=== PATIENT | female | born 1990 | race African-American/Black ===

== ENCOUNTER 2017-08-16 13:22 | Emergency (ER) | payer SELFPAY ==
[~2017-08-16] VITALS: Ht 160 cm; Wt 90.7 kg
[2017-08-16 13:33] VITALS: BP 144/74
[2017-08-16] MEDS ORDERED: methylPREDNISolone SOD SUCC PF 125 MG/2 ML VIAL. IM ONE (13:45)
[2017-08-16] MEDS ORDERED: IPRATRPIUM/ALBUTEROL 0.5/2.5MG 3 ML NEBU. NEB ONE (13:45)
--- NOTE | 2017-08-16 13:53 | PHYS DOC ---
Past Medical History Past Medical History: Asthma Past Surgical History: No Surgical History Alcohol Use: None Drug Use: None Adult General Chief Complaint Chief Complaint: ASTHMA HPI HPI Patient is a 27 year old female presents the ED complaining of cough 1 week. Patient states she has a history of asthma. Associated symptoms include sore throat and rhinorrhea. Sick contacts at home. Patient states she has a rescue inhaler but no nebulizer at home. Denies chest pain, dizziness, weakness, syncope, fever, nausea/vomiting or abdominal pain. Review of Systems Review of Systems Constitutional: Denies fever or chills [] Eyes: Denies change in visual acuity, redness, or eye pain [] HENT: Complains of sore throat and rhinorrhea.[] Respiratory: Complains of cough. Denies shortness of breath [] Cardiovascular: No additional information not addressed in HPI [] GI: Denies abdominal pain, nausea, vomiting, bloody stools or diarrhea [] : Denies dysuria or hematuria [] Musculoskeletal: Denies back pain or joint pain [] Integument: Denies rash or skin lesions [] Neurologic: Denies headache, focal weakness or sensory changes [] Endocrine: Denies polyuria or polydipsia [] All other systems were reviewed and found to be within normal limits, except as documented in this note. Current Medications Current Medications Current Medications Medications (Trade) Dose Ordered Sig/Tatum Start Time Stop Time Status Last Admin Dose Admin Albuterol/ Ipratropium (Duoneb) 3 ml 1X ONCE 08/16/17 13:45 08/16/17 13:46 DC 08/16/17 13:58 3 ML Methylprednisolone Sodium Succinate (SOLU-Medrol 125MG VIAL) 125 mg 1X ONCE 08/16/17 13:45 08/16/17 13:46 DC 08/16/17 13:53 125 MG Allergies Allergies Allergies Coded Allergies Type Severity Reaction Last Updated Verified No Known Drug Allergies 08/16/17 No Physical Exam Physical Exam Constitutional: Well developed, well nourished, no acute distress, non-toxic appearance. [] HENT: Normocephalic, atraumatic, bilateral external ears normal, oropharynx moist, no oral exudates, nose normal. [] Eyes: PERRLA, EOMI, conjunctiva normal, no discharge. [] Neck: Normal range of motion, no tenderness, supple, no stridor. [] Cardiovascular:Heart rate regular rhythm, no murmur [] Lungs & Thorax: Bilateral breath sounds. MILD WHEEZING BILATERALLY. [] Abdomen: Bowel sounds normal, soft, no tenderness, no masses, no pulsatile masses. [] Skin: Warm, dry, no erythema, no rash. [] Back: No tenderness, no CVA tenderness. [] Extremities: No tenderness, no cyanosis, no clubbing, ROM intact, no edema. [] Neurologic: Alert and oriented X 3, normal motor function, normal sensory function, no focal deficits noted. [] Psychologic: Affect normal, judgement normal, mood normal. [] Current Patient Data Vital Signs Vital Signs Date Time Temp Pulse Resp B/P (MAP) Pulse Ox O2 Delivery O2 Flow Rate FiO2 08/16/17 14:01 93 Room Air 08/16/17 13:33 97.9 97 24 97.9 Lab Values Laboratory Tests Test 08/16/17 13:46 POC Urine HCG, Qualitative Hcg negative (Negative) EKG EKG [] Radiology/Procedures Radiology/Procedures PROCEDURE: CHEST PA & LATERAL Two view chest History:Pneumonia PA and lateral views of the chest are submitted. Comparison: 07/17/2007 Findings: There is no dependent pleural fluid or pneumothorax. No lobar infiltrate is identified by radiograph. Heart size is stable, within normal limits. Impression: 1. No lobar infiltrate is identified by radiograph.[] Course & Med Decision Making Course & Med Decision Making Pertinent Labs and Imaging studies reviewed. (See chart for details) []Patient improved after breathing treatment. Will treat with outpatient azithromycin, prednisone and Pro Air inhaler. O2 Sat improved to 97%. Discussed reasons to return to the ED. Discussed follow-up with PCP in one to 2 days. Provided contact information/education. Patient understands and agrees with plan. Dragon Disclaimer Dragon Disclaimer This electronic medical record was generated, in whole or in part, using a voice recognition dictation system. Departure Departure Impression: Primary Impression: Acute bronchitis Disposition: HOME, SELF-CARE Condition: IMPROVED Referrals: NO PCP (PCP) Patient Instructions: Acute Bronchitis Scripts Azithromycin (AZITHROMYCIN TABLET) 250 Mg Tablet 1 PKG PO UD, #6 TAB Prov: SUNDAY SALEH 08/16/17 Albuterol Sulfate (PROAIR HFA INHALER) 8.5 Gm Hfa.aer.ad 1 PUFF INH PRN Q6HRS Y for SHORTNESS OF BREATH, #1 INHALER 0 Refills Prov: SUNDAY SALEH 08/16/17 Prednisone (PREDNISONE) 20 Mg Tablet 2 TAB PO DAILY, #10 TAB Prov: SUNDAY SALEH 08/16/17 SALEH Aug 16, 2017 13:53
--- NOTE | 2017-08-16 14:29 | RAD ---
Two view chest History:Pneumonia PA and lateral views of the chest are submitted. Comparison: 07/17/2007 Findings: There is no dependent pleural fluid or pneumothorax. No lobar infiltrate is identified by radiograph. Heart size is stable, within normal limits. Impression: 1. No lobar infiltrate is identified by radiograph.
[2017-08-16] MEDS ORDERED: AZIT250T6 PO (14:45)
[2017-08-16] MEDS ORDERED: PROAIR HFA8.5 GM INH (14:45)
[2017-08-16] MEDS ORDERED: PRED20TA PO (14:45)
== END 2017-08-16 14:58 | disposition home or self-care (01) ==
LOC: ER 13:22
DX: J20.9 Acute bronchitis, unspecified (principal); J45.909 Unspecified asthma, uncomplicated
CPT/HCPCS: 71020; 81025; 94250; 94640; 94760; 96372; 99284; J2930; J7620

== ENCOUNTER 2017-11-28 09:00 | Emergency (ER) | payer OTHER ==
[2017-11-28] MEDS: IPRATRPIUM/ALBUTEROL 0.5/2.5MG 3 ML NEBU. NEB (09:21)
== END 2017-11-28 09:43 | disposition home or self-care (01) ==
LOC: ER 09:00
DX: J45.21 Mild intermittent asthma with (acute) exacerbation (principal)
CPT/HCPCS: 94640; 99283; J7620

== ENCOUNTER 2017-12-09 11:22 | Emergency (ER) | payer OTHER ==
[2017-12-09] MEDS: HYDROcodone/APAP 5/325MG 1 TAB TABLET PO (13:17)
== END 2017-12-09 13:15 | disposition home or self-care (01) ==
LOC: ER 11:22
DX: S93.402A Sprain of unspecified ligament of left ankle, initial encounter (principal); S60.022A Contusion of left index finger without damage to nail, initial encounter; J45.909 Unspecified asthma, uncomplicated; Y04.0XXA Assault by unarmed brawl or fight, initial encounter; Y93.89 Activity, other specified; Y99.8 Other external cause status; Y92.89 Other specified places as the place of occurrence of the external cause
CPT/HCPCS: 29130; 73140; 73610; 99284-25

== ENCOUNTER 2018-03-10 13:25 | Emergency (ER) | payer OTHER ==
[2018-03-10 13:38] LABS: URINE HCG POC HCG POSITIVE (Negative)
[2018-03-10 13:42] LABS: BILIRUBIN,URINE NEGATIVE (NEG); CLARITY,URINE CLEAR; COLOR,URINE YELLOW; GLUCOSE,URINE NEGATIVE (NEG); NITRITE,URINE NEGATIVE (NEG); PH,URINE 6.5; PROTEIN,URINE NEGATIVE (NEG-TRACE)
[2018-03-10 13:52] LABS: BACTERIA,URINE FEW /HPF (0-FEW); RBC,URINE OCC /HPF (0-2); SQUAMOUS EPITHELIAL CELL,UR MANY /LPF; WBC,URINE RARE /HPF (0-4)
[2018-03-10 13:58] LABS: ADD MAN DIFF? NO
[2018-03-10 14:02] LABS: BASO # 0.1 x10^3/uL (0.0-0.2); BASO % 1 % (0-3); EOS # 0.6 x10^3/uL (0.0-0.7); EOS % 6 % (0-3); HEMATOCRIT 37.1 % (36.0-47.0); HEMOGLOBIN 12.3 g/dL (12.0-15.5); LYMPH # 2.8 x10^3/uL (1.0-4.8); LYMPH % 26 % (24-48); MEAN CORPUSCULAR HEMOGLOBIN 26 pg (25-35); MEAN CORPUSCULAR HGB CONC 33 g/dL (31-37); MEAN CORPUSCULAR VOLUME 77 fL (79-100); MONO # 0.6 x10^3/uL (0.0-1.1); MONO % 6 % (0-9); NEUT # 6.7 x10^3uL (1.8-7.7); NEUT % 62 % (31-73); PLATELET COUNT 307 x10^3/uL (140-400); RED BLOOD COUNT 4.83 x10^6/uL (3.50-5.40); RED CELL DISTRIBUTION WIDTH 15.3 % (11.5-14.5); WHITE BLOOD COUNT 10.7 x10^3/uL (4.0-11.0)
[2018-03-10 14:10] LABS: ANION GAP 10 (6-14); BLOOD UREA NITROGEN 14 mg/dL (7-20); BUN/CREATININE RATIO 23 (6-20); CALCIUM 9.1 mg/dL (8.5-10.1); CARBON DIOXIDE 26 mmol/L (21-32); CHLORIDE 102 mmol/L (98-107); CREATININE 0.6 mg/dL (0.6-1.0); GFR 145.1; GLUCOSE 98 mg/dL (70-99); POTASSIUM 3.8 mmol/L (3.5-5.1); SODIUM 138 mmol/L (136-145)
[2018-03-10 14:16] LABS: ALBUMIN 3.2 g/dL (3.4-5.0); ALBUMIN/GLOBULIN RATIO 0.9 (1.0-1.7); ALK PHOS 58 U/L (46-116); ALT (SGPT) 39 U/L (14-59); AST (SGOT) 19 U/L (15-37); TOTAL BILIRUBIN 0.4 mg/dL (0.2-1.0); TOTAL PROTEIN 6.9 g/dL (6.4-8.2)
[2018-03-10 14:43] LABS: PARTIAL THROMBOPLASTIN TIME 32 SEC (24-38)
[2018-03-12 14:31] LABS: CHLAMYDIA PROBE Negative (Negative); GC PROBE Negative (Negative)
== END 2018-03-10 16:06 | disposition home or self-care (01) ==
LOC: ER 16:06
DX: O46.91 Antepartum hemorrhage, unspecified, first trimester (principal); O23.591 Infection of other part of genital tract in pregnancy, first trimester; N76.0 Acute vaginitis; B96.89 Other specified bacterial agents as the cause of diseases classified elsewhere; O99.511 Diseases of the respiratory system complicating pregnancy, first trimester; J45.909 Unspecified asthma, uncomplicated
CPT/HCPCS: 36415; 76801; 76817; 80053; 81001; 81025; 84702; 85025; 85610; 85730; 86900; 86901; 87491; 87591; 99285-25; Q0111

== ENCOUNTER 2018-03-30 17:20 | Emergency (ER) | payer OTHER ==
[2018-03-30 17:47] LABS: BILIRUBIN,URINE MODERATE (NEG); CLARITY,URINE CLEAR; COLOR,URINE ORANGE; GLUCOSE,URINE NEGATIVE (NEG); NITRITE,URINE NEGATIVE (NEG); PROTEIN,URINE 30 mg/dL (NEG-TRACE)
[2018-03-30 17:52] LABS: BACTERIA,URINE FEW /HPF (0-FEW); RBC,URINE 0 /HPF (0-2); SQUAMOUS EPITHELIAL CELL,UR MOD /LPF
[2018-03-30 18:02] LABS: NEG OBC UR NEG; POS OBC UR POS; U PREG PATIENT POSITIVE (NEG)
[2018-03-30] MEDS: ONDANSETRON PF 4 MG/2 ML VIAL. IV (18:07)
[2018-03-30] MEDS: IV NORMAL SALINE 1000ML BAG 1,000 ML IV ×2 (18:08→19:00)
[2018-03-30 18:17] LABS: ADD MAN DIFF? NO
[2018-03-30 18:19] LABS: BASO # 0.1 x10^3/uL (0.0-0.2); BASO % 1 % (0-3); EOS # 0.4 x10^3/uL (0.0-0.7); EOS % 4 % (0-3); HEMATOCRIT 39.1 % (36.0-47.0); LYMPH # 2.2 x10^3/uL (1.0-4.8); LYMPH % 20 % (24-48); MEAN CORPUSCULAR HEMOGLOBIN 25 pg (25-35); MEAN CORPUSCULAR HGB CONC 33 g/dL (31-37); MEAN CORPUSCULAR VOLUME 76 fL (79-100); MONO # 0.7 x10^3/uL (0.0-1.1); MONO % 7 % (0-9); NEUT # 7.7 x10^3uL (1.8-7.7); NEUT % 69 % (31-73); PLATELET COUNT 322 x10^3/uL (140-400); RED BLOOD COUNT 5.13 x10^6/uL (3.50-5.40); RED CELL DISTRIBUTION WIDTH 14.8 % (11.5-14.5); WHITE BLOOD COUNT 11.2 x10^3/uL (4.0-11.0)
[2018-03-30 18:33] LABS: ANION GAP 9 (6-14); BLOOD UREA NITROGEN 9 mg/dL (7-20); CALCIUM 8.9 mg/dL (8.5-10.1); CARBON DIOXIDE 25 mmol/L (21-32); CHLORIDE 100 mmol/L (98-107); CREATININE 0.7 mg/dL (0.6-1.0); GFR 121.5; GLUCOSE 92 mg/dL (70-99); POTASSIUM 3.4 mmol/L (3.5-5.1); SODIUM 134 mmol/L (136-145)
== END 2018-03-30 20:20 | disposition home or self-care (01) ==
LOC: ER 20:20
DX: O21.9 Vomiting of pregnancy, unspecified (principal); O26.891 Other specified pregnancy related conditions, first trimester; O99.511 Diseases of the respiratory system complicating pregnancy, first trimester; Z3A.08 8 weeks gestation of pregnancy
CPT/HCPCS: 36415; 80048; 81001; 81025; 84702; 85025; 87086; 96361; 96374; 99285; J2405; J7030

== ENCOUNTER 2019-08-07 16:44 | Emergency (ER) | payer MEDICAID, OTHER ==
[~2019-08-07] VITALS: Ht 160 cm; Wt 103.0 kg
[~2019-08-07 16:44] MED LIST: ALBU0.63 NEB; ALBU2.5V8 INH; AZIT250T6 PO; METR500T PO; ONDA4TAB10 SL; PRED20TA PO; TRAM50TA PO
[2019-08-07 17:00] VITALS: BP 118/77
--- NOTE | 2019-08-07 18:01 | PHYS DOC ---
Past Medical History Past Medical History: Asthma Past Surgical History: No Surgical History Alcohol Use: None Drug Use: None Adult General Chief Complaint Chief Complaint: EARACHE/EAR PAIN HPI HPI Patient is a 28 year old AA female who presents to the emergency department with complaints of right ear pain, decreased hearing, dry cough, and nasal congestion for the last 2 days. She denies any injury to her ear, drainage from the ear, or bleeding. She denies any fever, wheezing, shortness of breath, abdominal pain, sore throat, nausea, vomiting, diarrhea, or rash. Patient currently rates her pain a 10 out of 10 on the pain scale, she denies any alleviating or exacerbating factors. All other ROS is neg unless otherwise noted in HPI. Review of Systems Review of Systems See Above Allergies Allergies Allergies Coded Allergies Type Severity Reaction Last Updated Verified No Known Drug Allergies 08/16/17 No Physical Exam Physical Exam See Above Constitutional: Well developed, well nourished, no acute distress, non-toxic appearance. [] HENT: Normocephalic, atraumatic, bilateral external ears normal, right TM erythemic and bulging no perforation, left TM normal, oropharynx moist, no oral exudates, nose congested Eyes: PERRLA, EOMI, conjunctiva normal, no discharge. [] Neck: Normal range of motion, no tenderness, supple, no stridor. [] Cardiovascular:Heart rate regular rhythm, no murmur [] Lungs & Thorax: Bilateral breath sounds clear to auscultation [] Skin: Warm, dry, no erythema, no rash. [] Back: No tenderness Extremities: No cyanosis, no clubbing, ROM intact, no edema. [] Neurologic: Alert and oriented X 3, no focal deficits noted. [] Psychologic: Affect normal, judgement normal, mood normal. [] EKG EKG [] Radiology/Procedures Radiology/Procedures [] Course & Med Decision Making Course & Med Decision Making Pertinent Labs and Imaging studies reviewed. (See chart for details) [] Dragon Disclaimer Dragon Disclaimer This electronic medical record was generated, in whole or in part, using a voice recognition dictation system. Departure Departure Impression: Primary Impression: Suppurative otitis media of right ear without rupture of ear drum Additional Impression: URI (upper respiratory infection) Disposition: 01 HOME, SELF-CARE Condition: STABLE Referrals: UNKNOWN PCP NAME (PCP) Patient Instructions: Otitis Media, Adult, [id number], Upper Respiratory Infection, Adult, [id number] Additional Instructions: Fill prescription(s) and use as directed. Recommend use of a Cool mist humidifier in room at bedtime. Alternate Tylenol or ibuprofen as needed for pain/fever. Increase clear fluids. Avoid airway triggers such as smoke, fragrance, dust, and pollen. May take [id number] cough suppressants as needed. Follow-up with your primary care doctor in 1-2 days, return to the ER if symptoms worsen. Scripts Amoxicillin (AMOXICILLIN) 875 Mg Tablet 1 TAB PO BID, #20 TAB 0 Refills Prov: MARTINA DAWN [employer]YWOOD STOCK GRADER 08/07/19 Problem Qualifiers Additional Impression: URI (upper respiratory infection) URI type: unspecified URI Qualified Codes: J06.9 - Acute upper respiratory infection, unspecified MARTINA DAWN [employer] GRADER Aug 07, 2019 18:01
[2019-08-07] MEDS ORDERED: AMOX875T PO (18:12)
== END 2019-08-07 18:22 | disposition home or self-care (01) ==
LOC: ER 16:44
DX: H66.41 Suppurative otitis media, unspecified, right ear (principal); J06.9 Acute upper respiratory infection, unspecified; J45.909 Unspecified asthma, uncomplicated
CPT/HCPCS: 99283

== ENCOUNTER 2019-09-27 14:22 | Emergency (ER) | payer MEDICAID ==
[~2019-09-27] VITALS: Ht 160 cm; Wt 98.4 kg
[~2019-09-27 14:22] MED LIST changes: +AMOX875T PO
--- NOTE | 2019-09-27 15:14 | PHYS DOC ---
Past Medical History Past Medical History: Asthma (MAREK HUA APRN) Past Surgical History: No Surgical History (MAREK HUA APRN) Alcohol Use: None Drug Use: None (MAREK HUA APRN) Adult General Chief Complaint Chief Complaint: SEXUALLY TRANSMITTED DISEASE HPI HPI Patient is a 29 year old female who presents with dysuria, vaginal odor this been ongoing for 2 days. The patient states her only history is asthma. The patient wants to be checked for STDs. (MAREK HUA APRN) Review of Systems Review of Systems Constitutional: Denies fever or chills [] Eyes: Denies change in visual acuity, redness, or eye pain [] HENT: Denies nasal congestion or sore throat [] Respiratory: Denies cough or shortness of breath [] Cardiovascular: No additional information not addressed in HPI [] GI: Denies abdominal pain, nausea, vomiting, bloody stools or diarrhea [] : Reports dysuria, and odor. Denies discharge. Musculoskeletal: Denies back pain or joint pain [] Integument: Denies rash or skin lesions [] Neurologic: Denies headache, focal weakness or sensory changes [] Endocrine: Denies polyuria or polydipsia [] Complete systems were reviewed and found to be within normal limits, except as documented in this note. (MAREK HUA APRN) Current Medications Current Medications Current Medications Medications (Trade) Dose Ordered Sig/Tatum Start Time Stop Time Status Last Admin Dose Admin Azithromycin (Zithromax) 1,000 mg 1X ONCE 09/27/19 16:00 09/27/19 16:01 DC 09/27/19 15:37 1,000 MG Ceftriaxone Sodium (Rocephin Im) 250 mg 1X ONCE 09/27/19 16:00 09/27/19 16:01 DC 09/27/19 15:36 250 MG (MAREK GREWAL DO) Allergies Allergies Allergies Coded Allergies Type Severity Reaction Last Updated Verified tramadol Allergy Severe soa 08/07/19 Yes (MAREK GREWAL DO) Physical Exam Physical Exam Constitutional: Well developed, well nourished, no acute distress, non-toxic appearance. [] HENT: Normocephalic, atraumatic, bilateral external ears normal, oropharynx moist, no oral exudates, nose normal. [] Eyes: PERRLA, EOMI, conjunctiva normal, no discharge. [] Neck: Normal range of motion, no tenderness, supple, no stridor. [] Cardiovascular:Heart rate regular rhythm, no murmur [] Lungs & Thorax: Bilateral breath sounds clear to auscultation [] Abdomen: Bowel sounds normal, soft, no tenderness, no masses, no pulsatile mas ses. [] Skin: Warm, dry, no erythema, no rash. [] Back: No tenderness, no CVA tenderness. [] Extremities: No tenderness, no cyanosis, no clubbing, ROM intact, no edema. [] Neurologic: Alert and oriented X 3, normal motor function, normal sensory function, no focal deficits noted. [] Psychologic: Affect normal, judgement normal, mood normal. [] Pelvic Exam: External exam is normal and without rash, No CMT, OS is closed, white discharge, uterus NTTP, No adnexal masses or tenderness noted (MAREK HUA APRN) Current Patient Data Vital Signs Vital Signs Date Time Temp Pulse Resp B/P (MAP) Pulse Ox O2 Delivery O2 Flow Rate FiO2 09/27/19 16:35 78 17 109/75 (86) 98 Room Air 09/27/19 14:50 98.7 98.7 (GREWALMAREK CANTOR DO) Lab Values Laboratory Tests Test 09/27/19 14:48 09/27/19 14:55 09/27/19 15:28 Urine Collection Type Unknown Urine Color Yellow Urine Clarity Clear Urine pH 6.5 Urine Specific [place] >=1.030 Urine Protein Negative mg/dL (NEG-TRACE) Urine Glucose (UA) Negative mg/dL (NEG) Urine Ketones (Stick) Negative mg/dL (NEG) Urine Blood Negative (NEG) Urine Nitrite Negative (NEG) Urine Bilirubin Negative (NEG) Urine Urobilinogen Dipstick 1.0 mg/dL (0.2 mg/dL) Urine Leukocyte Esterase Small (NEG) Urine RBC 0 /HPF (0-2) Urine WBC 20-40 /HPF (0-4) Urine Squamous Epithelial Cells Mod /LPF Urine Bacteria 0 /HPF (0-FEW) Urine Mucus Mod /LPF Urine Trichomonas Present POC Urine HCG, Qualitative Borderline hcg level Chlamydia DNA Probe Negative (Negative) Neisseria gonorrhoeae DNA Probe Negative (Negative) Microbiology 09/27/19 Urine Culture - Final, Complete 09/27/19 Urine Culture Result 1 (SHAILESH) - Final, Complete 09/27/19 Wet Prep - Final, Complete (MAREK GREWAL DO) EKG EKG [] (MAREK HUA APRN) Radiology/Procedures Radiology/Procedures [] (MAREK HUA APRN) Course & Med Decision Making Course & Med Decision Making Pertinent Labs and Imaging studies reviewed. (See chart for details) Will get STD testing, UA, and Urine . Patient has borderline test. Asked patient to follow up with OB. Will treat with Rocephin and Azithromycin. Wet Prep shows bacterial vaginosis, and Trichomoniasis. Will treat with Flagyl. (MAREK HUA APRN) Dragon Disclaimer Dragon Disclaimer This electronic medical record was generated, in whole or in part, using a voice recognition dictation system. (MAREK HUA APRN) Departure Departure Impression: Primary Impression: Trichomoniasis of vagina Additional Impressions: Bacterial vaginosis Urinary tract infection Concern about STD in female without diagnosis Disposition: 01 HOME, SELF-CARE Condition: STABLE Referrals: UNKNOWN PCP NAME (PCP) Patient Instructions: Bacterial Vaginosis, Sexually Transmitted Disease, Trichomoniasis, Urinary Tract Infection Additional Instructions: Thank you for visiting [facility]. We appreciate you trusting us with your care. If any additional problems come up don't hesitate to return to visit us. Please follow up with your primary care provider so they can plan additional care if needed and know about the problem that you had. If symptoms worsen come back to the Emergency Department. Any concerning symptoms that start such as chest pain, shortness of air, weakness or numbness on one side of the body, running high fevers or any other concerning symptoms return to the ER. You have been prescribed an antibiotic today to help fight your infection. Plea se take all of the antibiotic as directed. If after 48 hours the infection is not improving, please return for more care. If the infection worsens, return to ER for additional care. Do not drink alcohol with Flagyl. Please follow-up with [employer]ERSON. If you have further positive testing it may take 48-72 hours and you will get a call if positive. If anything is positive please notify your partner. Scripts Cephalexin (KEFLEX) 500 Mg Capsule 1 CAP PO BID for 7 Days, #14 CAP 0 Refills Prov: MAREK HUA APRN 09/27/19 Metronidazole (FLAGYL) 500 Mg Tablet 1 TAB PO BID for 7 Days, #14 TAB Prov: MAREK HUA APRN 09/27/19 Attending Signature Attending Signature I have reviewed the PA/EMERGENCY VETERINARY TECHNICIAN's note and plan of care. I was available for consultation as needed during the patient's visit in the emergency department. I agree with the clinical impression, plan, and disposition. (MAREK GREWAL DO) Problem Qualifiers Additional Impressions: Urinary tract infection Urinary tract infection type: acute cystitis Hematuria presence: without hematuria Qualified Codes: N30.00 - Acute cystitis without hematuria MAREK HUA APRN Sep 27, 2019 15:14 MAREK GREWAL DO Oct 01, 2019 19:03
[2019-09-27 15:22] LABS: BILIRUBIN,URINE NEGATIVE (NEG); CLARITY,URINE CLEAR; COLOR,URINE YELLOW; NITRITE,URINE NEGATIVE (NEG); PH,URINE 6.5; PROTEIN,URINE NEGATIVE (NEG-TRACE)
[2019-09-27 15:34] LABS: SQUAMOUS EPITHELIAL CELL,UR MOD /LPF
[2019-09-27 15:35] LABS: BACTERIA,URINE 0 /HPF (0-FEW); RBC,URINE 0 /HPF (0-2); TRICHOMONAS,URINE PRESENT; WBC,URINE 20-40 /HPF (0-4)
[2019-09-27] MEDS: cefTRIAXone IM 250 MG VIAL IM ONE (15:36)
[2019-09-27] MEDS: AZITHROMYCIN 250 MG TABLET. PO ONE (15:37)
[2019-09-27] MEDS ORDERED: METR500T PO (16:31)
[2019-09-27] MEDS ORDERED: CEPH-264 PO (16:31)
[2019-09-27 16:35] VITALS: BP 109/75
[2019-09-29 21:07] LABS: GC PROBE Negative (Negative)
== END 2019-09-27 16:37 | disposition home or self-care (01) ==
LOC: ER 14:22
DX: N30.00 Acute cystitis without hematuria (principal); N76.0 Acute vaginitis; B96.89 Other specified bacterial agents as the cause of diseases classified elsewhere; A59.01 Trichomonal vulvovaginitis; J45.909 Unspecified asthma, uncomplicated
CPT/HCPCS: 81001; 81025; 87086; 87491; 87591; 96372; 99284; J0696; Q0111; Q0144

== ENCOUNTER 2020-03-27 23:47 | Emergency (ER) | payer MEDICAID ==
[~2020-03-27] VITALS: Ht 160 cm; Wt 106.0 kg
[~2020-03-27 23:47] MED LIST changes: +CEPH-264 PO
--- NOTE | 2020-03-28 00:30 | PHYS DOC ---
Past Medical History Past Medical History: Asthma Past Surgical History: No Surgical History Smoking Status: Never Smoker Alcohol Use: None Drug Use: None General Adult EDM: Chief Complaint: HAND PROBLEM HPI: HPI: Patient is a 29 year old female presents to the ED with a chief complaint of swelling and redness to the left hand. Patient states that especially the third and fourth finger of left hand have tenderness in them. Patient states that she thinks he may have been bit by a spider. Patient states that yesterday there was a blister which spontaneously drained but today there is more redness in that area. Patient denies fever, chills, nausea, vomiting, shortness of breath. Review of Systems: Review of Systems: Constitutional: Denies fever or chills. [] Eyes: Denies change in visual acuity. [] HENT: Denies nasal congestion or sore throat. [] Respiratory: Denies cough or shortness of breath. [] Cardiovascular: Denies chest pain or edema. [] : Denies dysuria. [] Musculoskeletal: Complains of redness and tenderness to the left third and fourth finger Heart Score: Risk Factors: Risk Factors: DM, Current or recent (<one month) smoker, HTN, HLP, family history of CAD, obesity. Risk Scores: Score 0 - 3: 2.5% MACE over next 6 weeks - Discharge Home Score 4 - 6: 20.3% MACE over next 6 weeks - Admit for Clinical Observation Score 7 - 10: 72.7% MACE over next 6 weeks - Early Invasive Strategies Allergies: Allergies: Allergies Coded Allergies Type Severity Reaction Last Updated Verified tramadol Allergy Severe soa 08/07/19 Yes Physical Exam: PE: Constitutional: Well developed, well nourished, no acute distress, non-toxic appearance. [] HENT: Normocephalic, atraumatic Eyes: EOMI Neck: Normal range of motion, Supple Respiratory: No respiratory distress Extremities: Erythema, tenderness to the third and fourth fingers of the left hand. Neurologic: Alert and oriented X 3 Current Patient Data: Vital Signs: Vital Signs Date Time Temp Pulse Resp B/P (MAP) Pulse Ox O2 Delivery O2 Flow Rate FiO2 03/27/20 23:50 98.4 77 16 135/90 (105) 96 Room Air 98.4 EKG: EKG: [] Radiology/Procedures: Radiology/Procedures: [] Course & Med Decision Making: Course & Med Decision Making Patient will be treated with oral antibiotics and pain medication. Discussed plan of care with patient. Patient is instructed to follow up with PCP in one to 2 days. Appropriate discharge instructions given to patient to return to the ED or to seek immediate medical evaluation. Patient is instructed to return to the ED if symptoms worsen or if any concerns. Dragon Disclaimer: Dragon Disclaimer: This electronic medical record was generated, in whole or in part, using a voice recognition dictation system. Departure Departure Impression: Primary Impression: Cellulitis of hand, left Disposition: HOME, SELF-CARE Condition: GOOD Referrals: UNKNOWN PCP NAME (PCP) Patient Instructions: Cellulitis Additional Instructions: Discussed plan of care with patient. Patient is instructed to follow up with PCP in one to 2 days. Appropriate discharge instructions given to patient to return to the ED or to seek immediate medical evaluation. Patient is instructed to return to the ED if symptoms worsen or if any concerns. Scripts Sulfamethoxazole/Trimethoprim (BACTRIM DS TABLET) 1 Each Tablet 1 TAB PO BID for 10 Days, #20 TAB 0 Refills Prov: CYNTHIA EDWARDS DO 03/28/20 Justicifation of Admission Dx: Justifications for Admission: Justification of Admission Dx: No CYNTHIA EDWARDS DO Mar 28, 2020 00:30
[2020-03-28] MEDS ORDERED: SULF1TAB24 PO (00:52)
[2020-03-28 01:06] VITALS: BP 117/65
[2020-03-28] MEDS ORDERED: SMZ/TMP 800/160MG TABLET. PO ONE ×2 (01:14→01:30)
== END 2020-03-28 01:04 | disposition home or self-care (01) ==
LOC: ER 23:47
DX: L03.114 Cellulitis of left upper limb (principal); J45.909 Unspecified asthma, uncomplicated; Z88.6 Allergy status to analgesic agent
CPT/HCPCS: 99283

== ENCOUNTER 2021-06-23 20:35 | Emergency (ER) | payer MEDICAID ==
[~2021-06-23] VITALS: Ht 160 cm; Wt 104.0 kg
[~2021-06-23 20:35] MED LIST changes: +SULF1TAB24 PO
[2021-06-23] MEDS ORDERED: IPRATRPIUM/ALBUTEROL 0.5/2.5MG 3 ML NEBU. ONE (21:23)
[2021-06-23] MEDS ORDERED: IPRATRPIUM/ALBUTEROL 0.5/2.5MG 3 ML NEBU. NEB ONE (21:30)
[2021-06-23] MEDS ORDERED: DEXAMETHASONE 4 MG TABLET PO ONE (21:30)
--- NOTE | 2021-06-23 21:54 | RAD ---
Exam: Chest one view INDICATION: Asthma, shortness of breath TECHNIQUE: Frontal view of the chest Comparisons: 08/16/2017 FINDINGS: The cardiomediastinal silhouette and pulmonary vessels are within normal limits. The lung and pleural spaces are clear. IMPRESSION: No acute cardiopulmonary process. Electronically signed by: Axel Ramey MD (06/23/2021 9:52 PM) [facility]
--- NOTE | 2021-06-23 22:29 | PHYS DOC ---
Past Medical History Past Medical History: Asthma Past Surgical History: No Surgical History Smoking Status: Never Smoker Alcohol Use: None Drug Use: None General Adult EDM: Chief Complaint: ASTHMA HPI: HPI: Patient is a 30 year old female with history of asthma who presents with shortness of breath that is consistent with previous asthma exacerbations. States that she is on Singulair, Symbicort, and albuterol as needed for controller medications. She has been using her albuterol every 4 hours the last several days. Has been using with a spacer. Has not missed any medication doses. Was recently on a 14-day steroid taper, that stopped 3 days ago. Since stopping the steroids she has increase in symptoms which include cough, chest tightness, wheezing, and shortness of breath. Denies any fever/chills. No sore throat, rhinorrhea, sinus congestion. No Covid contacts. Is not vaccinated for Covid, but is considering getting it in the near future. She does have a PCP, and has been referred to a washtub worker helper. First appt in July. Review of Systems: Review of Systems: Constitutional: Denies fever or chills. [] Eyes: Denies change in visual acuity. [] HENT: Denies nasal congestion or sore throat. [] Respiratory: Reports cough, shortness of breath, chest tightness, wheezing Cardiovascular: Denies chest pain or edema. [] GI: Denies abdominal pain, nausea, vomiting, bloody stools or diarrhea. [] : Denies dysuria. [] Musculoskeletal: Denies back pain or joint pain. [] Integument: Denies rash. [] Neurologic: Denies headache, focal weakness or sensory changes. [] Endocrine: Denies polyuria or polydipsia. [] Lymphatic: Denies swollen glands. [] Psychiatric: Denies depression or anxiety. [] Heart Score: C/O Chest Pain: No Risk Factors: Risk Factors: DM, Current or recent (<one month) smoker, HTN, HLP, family history of CAD, obesity. Risk Scores: Score 0 - 3: 2.5% MACE over next 6 weeks - Discharge Home Score 4 - 6: 20.3% MACE over next 6 weeks - Admit for Clinical Observation Score 7 - 10: 72.7% MACE over next 6 weeks - Early Invasive Strategies Current Medications: Current Medications Medications (Trade) Dose Ordered Sig/Tatum Start Time Stop Time Status Last Admin Dose Admin Albuterol/ Ipratropium (Duoneb) 3 ml STK-MED ONCE 06/23/21 21:23 06/23/21 21:23 DC Dexamethasone (Decadron) 10 mg 1X ONCE 06/23/21 21:30 06/23/21 21:31 DC 06/23/21 21:28 10 MG Allergies: Allergies: Allergies Coded Allergies Type Severity Reaction Last Updated Verified tramadol Allergy Severe soa 08/07/19 Yes Physical Exam: PE: Constitutional: Well developed, well nourished, no acute distress, non-toxic appearance. [] HENT: Normocephalic, atraumatic, bilateral external ears normal, oropharynx moist, no oral exudates, nose normal. [] Eyes: PERRLA, EOMI, conjunctiva normal, no discharge. [] Neck: Normal range of motion, no tenderness, supple, no stridor. [] Cardiovascular:Heart rate regular rhythm, no murmur [] Lungs & Thorax: Mild tachypnea. And expiratory wheezes. Satting 93-96% on room air while speaking. Speaking in full sentences. Abdomen: Bowel sounds normal, soft, no tenderness, no masses, no pulsatile masses. [] Skin: Warm, dry, no erythema, no rash. [] Back: No tenderness, no CVA tenderness. [] Extremities: No tenderness, no cyanosis, no clubbing, ROM intact, no edema. [] Neurologic: Alert and oriented X 3, normal motor function, normal sensory function, no focal deficits noted. [] Psychologic: Affect normal, judgement normal, mood normal. [] Current Patient Data: Labs: Laboratory Tests Test 06/23/21 21:25 SARS-CoV-2 Antigen (Rapid) Negative (NEGATIVE) Vital Signs: Vital Signs Date Time Temp Pulse Resp B/P (MAP) Pulse Ox O2 Delivery O2 Flow Rate FiO2 06/23/21 21:57 102 14 148/90 (109) 98 Room Air 06/23/21 20:58 99.7 99.7 EKG: EKG: [] Radiology/Procedures: Radiology/Procedures: [facility] [address] [place], [place] [id number] IMAGING REPORT Signed PATIENT: JOSE LOYOLA DACCOUNT: [id number] : 1990 LOCATION: ER AGE: 30 SEX: F EXAM STATUS: REG ER ORD. PHYSICIAN: LIMA BOB MD REASON: asthma, sob PROCEDURE: CHEST AP ONLY Exam: Chest one view INDICATION: Asthma, shortness of breath TECHNIQUE: Frontal view of the chest Comparisons: 08/16/2017 FINDINGS: The cardiomediastinal silhouette and pulmonary vessels are within normal limits. The lung and pleural spaces are clear. IMPRESSION: No acute cardiopulmonary process. Electronically signed by: Axel Salinas MD (06/23/2021 9:52 PM) [facility] DICTATED and SIGNED BY: AXEL SALINAS MD DATE: 06/23/21 [id number] [] Course & Med Decision Making: Course & Med Decision Making Pertinent Labs and Imaging studies reviewed. (See chart for details) Patient is a 30-year-old female with history of asthma who presents with sympto ms consistent with asthma exacerbation after stopping a 14-day steroid taper. Is on inhaled corticosteroids, montelukast, and has an albuterol rescue inhaler that she has been using every 4 hours. On arrival is mildly tachypneic with end expiratory wheezes on examination. Not in respiratory distress. Satting 93-96% on room air. We will treat with stacked nebulizers, dexamethasone. Chest x-ray shows no acute process. Covid rapid test is negative. PCR pending. 2229 On reassessment after stacked nebulizers, does have better aeration of the lung moody. Continues to have mild tachypnea, but is keeping up with work of breathing. Satting well on room air. We will discharge with a course of prednisone, and encourage close PCP follow-up within the next 4 days. Dragon Disclaimer: Dragon Disclaimer: This electronic medical record was generated, in whole or in part, using a voice recognition dictation system. Departure Departure Impression: Primary Impression: Asthma exacerbation Disposition: HOME / SELF CARE / HOMELESS Condition: STABLE Referrals: UNKNOWN PCP NAME (PCP) Patient Instructions: Asthma, Adult Additional Instructions: Your symptoms are consistent with an asthma exacerbation. Your chest x-ray was clear. Your rapid Covid swab was negative. The more accurate PCR swab will be resulted by tomorrow. Please take the prednisone burst as prescribed. Please follow-up with your primary care doctor either tomorrow or Sunday to ensure your symptoms are improving and to discuss further asthma care. If your shortness of breath worsens please do not hesitate to return to the emergency department for reevaluation. Scripts Prednisone (PREDNISONE) 50 Mg Tablet 1 TAB PO DAILY for 7 Days, #7 TAB 0 Refills Prov: LIMA BOB MD 06/23/21 LIMA BOB MD Jun 23, 2021 22:29
[2021-06-23 23:00] VITALS: BP 148/90
[2021-06-23] MEDS ORDERED: PRED50TA PO (23:15)
--- NOTE | 2021-06-24 15:57 | NUR ---
IP: Patient notified of negative COVID19 test results. Verbalized understanding.
== END 2021-06-23 23:25 | disposition home or self-care (01) ==
LOC: ER 20:35
DX: J45.901 Unspecified asthma with (acute) exacerbation (principal); Z20.822 Contact with and (suspected) exposure to COVID-19; Z88.6 Allergy status to analgesic agent
CPT/HCPCS: 71045; 87426; 94644; 99285; U0003; U0005